=== PATIENT | male | born 1980 | race African-American/Black ===

== ENCOUNTER 2020-10-08 17:46 | Emergency (ER) | payer OTHER, SELFPAY ==
[2020-10-08 19:06] VITALS: BP 151/94; PULSE 56; RESP 16; TEMP 37.1; O2SAT 97; BMI 29.2
--- NOTE | 2020-10-08 21:07 | ED.GENADULT ---
HPI - General Adult General Chief complaint: General Medical Stated complaint: vomiting blood Time Seen by Provider: 10/08/20 21:07 Source: patient Mode of arrival: ambulatory Limitations: no limitations History of Present Illness HPI narrative: Patient history of cannabis induced vomiting/cyclic vomiting syndrome says that is not smoking marijuana for last 6 months comes here for last 3 days of vomiting multiple times now has some streaks of bright red blood when he vomits has epigastric pain no history of alcohol use no melena patient ,denies any anxiety no history of pancreatitis Related Data Allergies Allergy/AdvReac Type Severity Reaction Status Date / Time naproxen [From Aleve] Allergy Swelling Verified 10/08/20 19:06 Review of Systems Review of Systems: Yes all other systems are reviewed and are negative PMFSH Past Medical History Medical History No active medical problems Social History Social History Alcohol intake: never Patient Tobacco Use Status: Current everyday Tobacco user Use of substances other than those prescribed or required for medical reasons: No Advance Directives: No Advance Directives Information Provided: Yes Physical Exam Vital Signs: Vital Signs: Last Vital Signs Temp 98.8 F 10/08/20 19:06 Pulse 56 10/08/20 19:06 Resp 16 10/08/20 19:06 BP 151/94 H 10/08/20 19:06 Pulse Ox 97 10/08/20 19:06 Body Mass Index 29.2 Appearance: Alert. Oriented X3. In mild distress. Eyes: PERRLA, No Nystagmus ENT: Pharynx normal. Oral Mucosa moist Neck: Normal inspection. Neck supple. CVS: Normal heart rate and rhythm. Pulses normal. Respiratory: No respiratory distress. Equal air entry bilateral, Abdomen: Soft and epigastric tenderness+. Bowel sounds are present, no mass palpable, no CVA tenderness Skin: Skin warm and dry. Normal skin color. Normal skin turgor. Extremities: No lower extremity edema. Neuro: Oriented X 3. Medical Decision Making MDM Narrative Medical decision making narrative: Patient has cyclic vomiting syndrome received IV fluids feeling much better now taking p.o. fluids will discharge patient home Lab Data Lab results reviewed: Yes I reviewed the patient's lab results. Result diagrams: 10/08/20 21:11 10/08/20 21:11 Labs: Lab Results 10/08/20 10/08/20 10/08/20 Range/Units 21:11 21:11 21:11 WBC 8.6 (4.8-10.8) X10*3/uL RBC 4.76 (4.60-5.80) X10*6/uL Hgb 15.3 (14.0-18.0) g/dl Hct 44.9 (42-52) % MCV 94.3 (80-98) fL MCH 32.1 (27.0-33.0) pg MCHC 34.1 (31.0-36.0) g/dl RDW 11.5 (11.0-16.0) % Plt Count 308 (160-400) X10*3/uL MPV 10.4 (9.4-12.4) fL Immature Gran % (Auto) Cancelled Neut % (Auto) Cancelled Lymph % (Auto) Cancelled [place] % (Auto) Cancelled Eos % (Auto) Cancelled Baso % (Auto) Cancelled Lymph # (Auto) Cancelled [place] # (Auto) Cancelled Eos # (Auto) Cancelled Baso # (Auto) Cancelled Abs Immat Gran (auto) Cancelled Absolute Neuts (auto) Cancelled Absolute Nucleated RBC 0.000 (0.0-0.012) X10*3/uL Nucleated RBC % (auto) 0.0 (0.0-0.2) /100WBC Neutrophils % (Manual) 69 (45-73) % Lymphocytes % (Manual) 23 (20-40) % Monocytes % (Manual) 8 (2-11) % Abs Neuts (Manual) 5.9 (2.2-7.9) X10*3/uL Lymphocytes # (Manual) 2.0 (0.6-4.8) X10*3/uL Monocytes # (Manual) 0.7 (0.0-1.2) X10*3/uL Platelet Estimate NORMAL (NORMAL) Plt Morphology Comment NORMAL RBC Morphology NORMAL Sodium 138 (135-145) mmol/L Potassium 3.9 (3.3-5.1) mmol/L Chloride 97 (96-108) mmol/L Carbon Dioxide 28 (22-29) mmol/L Anion Gap 17 (12-20) BUN 13 (9-16) mg/dL Creatinine 0.94 (0.5-1.4) mg/dL Estim Creat Clear Calc 149.7 Estimated GFR > 60 Random Glucose 104 (60-115) mg/dL Calcium 10.0 (8.4-10.2) mg/dL Total Bilirubin 1.2 H (0.0-1.0) mg/dL Direct Bilirubin 0.4 (0.0-0.5) mg/dL AST 20 (5-37) U/L ALT 25 (0-40) U/L Alkaline Phosphatase 93 (39-117) U/L Total Protein 8.2 H (6.5-8.0) g/dL Albumin 4.6 (3.5-5.0) g/dL Lipase 9 (8-78) U/L Urine Color DARK YELLOW Urine Appearance CLEAR Urine pH 6.0 (5.0-8.0) Ur Specific [place] >= 1.030 H (1.005-1.025) Urine Protein TRACE (NEG-TRACE) MG/DL Urine Glucose (UA) NEG (NEG) MG/DL Urine Ketones 5 (NEG) MG/DL Urine Blood TRACE (NEG) Urine Nitrite NEG (NEG) Ur Leukocyte Esterase NEG (NEG) Urine RBC 0-2 (0) /HPF Urine WBC 0 (0-4) /HPF Ur Squamous Epith Cells NONE /LPF Urine Bacteria TRACE /LPF Hyaline Casts 0-2 /LPF Urine Mucus 4+ /LPF
[2020-10-08 21:20] LABS: Hematocrit 44.9 % (42-52); Hemoglobin 15.3 g/dl (14.0-18.0); Mean Corpuscular HGB Conc 34.1 g/dl (31.0-36.0); Mean Corpuscular Hemoglobin 32.1 pg (27.0-33.0); Mean Corpuscular Volume 94.3 fL (80-98); Mean Platelet Volume 10.4 fL (9.4-12.4); Platelet Count 308 X10*3/uL (160-400); Red Blood Count 4.76 X10*6/uL (4.60-5.80); Red Cell Distribution Width 11.5 % (11.0-16.0)
[2020-10-08] MEDS: LORazepam 2 MG/ML VIAL IVPUSH (21:21)
[2020-10-08] MEDS: Famotidine/PF 20 MG/2 ML VIAL IVPUSH (21:21)
[2020-10-08] MEDS: ondansetron HCL 4 MG/2 ML VIAL IVPUSH (21:21)
[2020-10-08] MEDS: 0.9 % Sodium Chloride 1,000 ML 999 ML IVCONT ×2 (21:21→23:56)
[2020-10-08 21:22] LABS: WBC ABN SCTR FOR CBC 1
[2020-10-08 21:24] LABS: Glucose Urine UA NEG (NEG); Leukocyte Esterase Urine NEG (NEG); Nitrite Urine NEG (NEG); Specific Gravity - Urine >= 1.030 (1.005-1.025); Urine Blood TRACE (NEG); Urine Ketones 5 MG/DL (NEG); Urine Protein TRACE MG/DL (NEG-TRACE)
[2020-10-08 21:25] LABS: Appearance Urine CLEAR; Color Urine DARK YELLOW
[2020-10-08 21:31] LABS: Bacteria Urine TRACE /LPF; Hyaline Casts Urine 0-2 /LPF; Mucus Urine 4+ /LPF; RBC Urine 0-2 /HPF (0); WBC Urine 0 /HPF (0-4)
[2020-10-08 21:43] LABS: Alanine Aminotransferase 25 U/L (0-40); Albumin Level 4.6 g/dL (3.5-5.0); Alkaline Phosphatase 93 U/L (39-117); Anion Gap 17 (12-20); Aspartate Amino Transferase 20 U/L (5-37); Bilirubin Direct 0.4 mg/dL (0.0-0.5); Bilirubin Total 1.2 mg/dL (0.0-1.0); Blood Urea Nitrogen 13 mg/dL (9-16); Carbon Dioxide 28 mmol/L (22-29); Chloride 97 mmol/L (96-108); Creatinine Clr Calc Pharmacy 149.7; Estimated Glomerular Filt Rate > 60; Glucose Random 104 mg/dL (60-115); Lipase 9 U/L (8-78); Potassium 3.9 mmol/L (3.3-5.1); Sodium 138 mmol/L (135-145); Total Protein 8.2 g/dL (6.5-8.0)
[2020-10-08 21:44] LABS: Lymphocytes Percent Manual 23 % (20-40); Monocytes Absolute Manual 0.7 X10*3/uL (0.0-1.2); Monocytes Percent Manual 8 % (2-11); Neutrophils Percent Manual 69 % (45-73); RBC Morphology NORMAL; White Blood Count 8.6 X10*3/uL (4.8-10.8)
[2020-10-08 21:45] LABS: Neutrophils Absolute Manual 5.9 X10*3/uL (2.2-7.9); Platelet Estimate NORMAL (NORMAL); Platelet Morphology Comment NORMAL
[2020-10-08] MEDS: Prochlorperazine Edisylate 10 MG/2 ML VIAL IVPUSH (23:57)
[2020-10-09 01:31] VITALS: BP 147/83; PULSE 62; RESP 16; TEMP 36.9; O2SAT 98
== END 2020-10-09 01:32 | disposition home or self-care (01) ==
PROVIDERS: Emergency Provider Internal Medicine; PCP Internal Medicine
DX: R11.15 Cyclical vomiting syndrome unrelated to migraine (principal); F12.988 Cannabis use, unspecified with other cannabis-induced disorder; F17.200 Nicotine dependence, unspecified, uncomplicated; Z71.6 Tobacco abuse counseling; Z79.899 Other long term (current) drug therapy
CPT/HCPCS: 36415; 80048; 80076; 81001; 83690; 85007; 85027; 96365; 96375; 99284; J2060; J2405

== ENCOUNTER 2022-07-04 20:06 | Emergency (ER) | payer BC, OTHER, SELFPAY ==
[2022-07-04 20:20] VITALS: BP 161/84; PULSE 57; RESP 20; TEMP 36.6; O2SAT 100; BMI 25.9
[2022-07-04 20:40] LABS: MANUAL DIFF FLAG NO
[2022-07-04 20:42] LABS: Mean Corpuscular Volume 96.2 fL (80.0-98.0); WBC ABN SCTR 1
[2022-07-04 20:49] LABS: Basophils Percent Auto 0.1 % (0-2); Hematocrit 42.9 % (42.0-52.0); Hemoglobin 14.5 g/dl (14.0-18.0); Imm Gran Abs Auto 0.02 X10*3/uL (0.00-0.03); Imm Gran Pct Auto 0.2 % (0.0-0.4); Lymphocytes Absolute Auto 0.7 X10*3/uL (1.2-4.9); Lymphocytes Percent Auto 8.2 % (20-40); Mean Corpuscular HGB Conc 33.8 g/dl (31.0-36.0); Mean Corpuscular Hemoglobin 32.5 pg (27.0-33.0); Mean Platelet Volume 9.8 fL (9.4-12.4); Monocytes Absolute Auto 0.3 X10*3/uL (0.1-1.2); Monocytes Percent Auto 3.5 % (2-11); Neutrophils Absolute Auto 7.3 x10*3/uL (2.0-8.3); Platelet Count 270 X10*3/uL (160-400); Red Blood Count 4.46 X10*6/uL (4.60-5.80); Red Cell Distribution Width 11.3 % (11.0-16.0)
[2022-07-04 20:51] LABS: WBC ABN SCTR FOR CBC 1
[2022-07-04 20:52] LABS: White Blood Count 8.3 X10*3/uL (4.8-10.8)
[2022-07-04 21:00] LABS: Alanine Aminotransferase 23 U/L (0-40); Albumin Level 4.7 g/dL (3.5-5.0); Alkaline Phosphatase 69 U/L (39-117); Anion Gap 16 (12-20); Aspartate Amino Transferase 20 U/L (5-37); Bilirubin Direct 0.2 mg/dL (0.0-0.5); Bilirubin Total 0.8 mg/dL (0.0-1.0); Blood Urea Nitrogen 13 mg/dL (9-16); Calcium 9.7 mg/dL (8.4-10.2); Carbon Dioxide 24 mmol/L (22-29); Chloride 110 mmol/L (96-108); Creatinine Clr Calc Pharmacy 157.7; Estimated Glomerular Filt Rate > 60; Glucose Random 142 mg/dL (60-115); Lipase 13 U/L (8-78); Potassium 4.2 mmol/L (3.3-5.1); Sodium 146 mmol/L (135-145); Total Protein 7.6 g/dL (6.5-8.0)
--- NOTE | 2022-07-04 21:41 | ED_ITS ---
HPI - Nausea/Vomiting/Diarrhea General Chief complaint: Nausea/Vomiting/Diarrhea Stated complaint: vomiting, cant keep anything down Time Seen by Provider: 07/04/22 21:00 Source: patient and family Mode of arrival: ambulatory History of Present Illness HPI Narrative: 41-year-old male who presents with recurrent episodes of nausea and vomiting, has been seen previously by Gastroenterology but blown off and does have a history of using marijuana but states that he has previously stopped using but still continued to have the problem with nausea and vomiting. He otherwise denies any fever, chills, abdominal pain, dysuria. He denies any contaminated food intake. Related Data Previous Rx's Medication Instructions Recorded lorazepam 1 mg tablet (Ativan) 1 mg PO BID PRN anxiety #20 tabs 10/09/20 ondansetron 4 mg disintegrating 4 mg PO Q6-8H PRN nausea and 10/09/20 tablet vomiting #10 tabs ondansetron HCl 4 mg tablet 4 mg PO Q8H PRN nausea and 07/05/22 vomiting 4 days #14 tabs Allergies Allergy/AdvReac Type Severity Reaction Status Date / Time naproxen [From Aleve] Allergy Swelling Verified 07/04/22 20:24 Review of Systems Review of Systems: Pertinent positives and negatives as stated in HPI PMFSH Past Medical History Source: nursing notes reviewed Medical History No active medical problems Social History Social History Alcohol intake: never Patient Tobacco Use Status: Current everyday Tobacco user Smoked in Last 30 Days: No Use of substances other than those prescribed or required for medical reasons: No Advance Directives: No Advance Directives Information Provided: No Physical Exam Vital Signs: Vital Signs: Last Vital Signs Temp 98 F 07/04/22 20:20 Pulse 57 07/04/22 20:20 Resp 20 07/04/22 20:20 BP 161/84 H 07/04/22 20:20 Pulse Ox 100 07/04/22 20:20 O2 Del Method Room Air 07/04/22 20:20 BMI result Body Mass Index 25.9 VITAL SIGNS: Reviewed. GENERAL: Well developed, well nourished, in no acute distress. HEAD: Normocephalic/atraumatic EYES: PERRLA, EOMI EARS: Ext canals without abnormality, TMs non-bulging and non-erythematous NOSE: Nares patent bilateral OROPHARYNX: no oral lesions noted, posterior pharynx clear NECK: Supple, no adenopathy LUNGS: Normal breath sounds. No adventitious sounds or accessory muscle use. SpO2<100> CARDIOVASCULAR: Regular rate and rhythm without noted murmurs ABDOMEN: Soft, non-tender, non-distended with bowel sounds. MUSCULOSKELETAL: No tenderness, deformities, or effusions noted on gross inspection. EXTREMITIES: No cyanosis, clubbing or edema. SKIN: Inspection of the skin reveals no rashes NEUROLOGIC: Alert and oriented x 4. Strength and sensation to light touch were grossly intact x 4. Medications Administered Discontinued Medications Generic Name Dose Route Start Last Admin Trade Name Freq PRN Reason Stop Dose Admin Diphenhydramine HCl 25 mg 07/04/22 21:41 07/04/22 21:49 Diphenhydramine Hcl 50 Mg/Ml Vial IVPUSH 07/04/22 21:42 25 mg ONCE ONE Administration Sodium Chloride 1,000 mls @ 999 mls/hr 07/04/22 21:45 07/04/22 23:47 Ns IV 07/04/22 22:45 Infused .Q1H1M SUNG Infusion Metoclopramide HCl 10 mg 07/04/22 21:41 07/04/22 21:48 Metoclopramide Hcl 10 Mg/2 Ml Vial IVPUSH 07/04/22 21:42 10 mg ONCE ONE Administration Ondansetron HCl 4 mg 07/04/22 21:41 07/04/22 21:48 Ondansetron Hcl 4 Mg/2 Ml Vial IVPUSH 07/04/22 21:42 4 mg ONCE ONE Administration Medical Decision Making Medical Decision Making MDM Narrative: 41-year-old male with history and clinical presentation consistent with sickle vomiting but unclear whether not this is stress, cannabis use, or a viral gastroenteritis. Will provide antiemetics, rehydration and re-evaluate. Patient was rehydrated, he is now tolerating oral intake, he is otherwise discharged home in stable condition with a prescription for anti emetics as well as a referral for GI and instructions to begin keeping track of any stressors and or food consumption that may be contributing to his cyclical vomiting. Differential Diagnosis Please see the discussion above Lab Data Please see the discussion above 07/04/22 20:36 07/04/22 20:36 Labs: Lab Results 07/04/22 07/04/22 07/04/22 Range/Units 20:36 20:36 23:24 WBC 8.3 (4.8-10.8) X10*3/uL RBC 4.46 L (4.60-5.80) X10*6/uL Hgb 14.5 (14.0-18.0) g/dl Hct 42.9 (42.0-52.0) % MCV 96.2 (80.0-98.0) fL MCH 32.5 (27.0-33.0) pg MCHC 33.8 (31.0-36.0) g/dl RDW 11.3 (11.0-16.0) % Plt Count 270 (160-400) X10*3/uL MPV 9.8 (9.4-12.4) fL Immature Gran % (Auto) 0.2 (0.0-0.4) % Neut % (Auto) 88.0 H (45-73) % Lymph % (Auto) 8.2 L (20-40) % [place] % (Auto) 3.5 (2-11) % Eos % (Auto) 0.0 (0-4) % Baso % (Auto) 0.1 (0-2) % Lymph # (Auto) 0.7 L (1.2-4.9) X10*3/uL [place] # (Auto) 0.3 (0.1-1.2) X10*3/uL Eos # (Auto) 0.0 (0.0-0.4) X10*3/uL Baso # (Auto) 0.0 (0.0-0.2) X10*3/uL Abs Immat Gran (auto) 0.02 (0.00-0.03) X10*3/uL Absolute Neuts (auto) 7.3 (2.0-8.3) x10*3/uL Absolute Nucleated RBC 0.000 (0.0-0.012) X10*3/uL Nucleated RBC % (auto) 0.0 (0.0-0.2) /100WBC Sodium 146 H (135-145) mmol/L Potassium 4.2 (3.3-5.1) mmol/L Chloride 110 H (96-108) mmol/L Carbon Dioxide 24 (22-29) mmol/L Anion Gap 16 (12-20) BUN 13 (9-16) mg/dL Creatinine 0.80 (0.5-1.4) mg/dL Estim Creat Clear Calc 157.7 Estimated GFR > 60 Random Glucose 142 H (60-115) mg/dL Calcium 9.7 (8.4-10.2) mg/dL Total Bilirubin 0.8 (0.0-1.0) mg/dL Direct Bilirubin 0.2 (0.0-0.5) mg/dL AST 20 (5-37) U/L ALT 23 (0-40) U/L Alkaline Phosphatase 69 (39-117) U/L Total Protein 7.6 (6.5-8.0) g/dL Albumin 4.7 (3.5-5.0) g/dL Lipase 13 (8-78) U/L Urine Opiates Screen Not Detected (Not Detect) Urine Fentanyl Screen Not Detected (Not Detect) Ur Barbiturates Screen Not Detected (Not Detect) Ur Phencyclidine Scrn Not Detected (Not Detect) Ur Amphetamines Screen Not Detected (Not Detect) U Benzodiazepines Scrn Not Detected (Not Detect) Urine Cocaine Screen Not Detected (Not Detect) U Marijuana (THC) Screen POSITIVE H (Not Detect) Independent Interpretation I performed an independent interpretation of an: EKG Interpretation: Sinus rhythm with PACs, HR-60, no STEMI, GA/QRS/QTC is within normal limits. External Record Review External record reviewed: Outpatient record and Prior outpatient labs Discharge Plan Discharge Clinical Impression: Cyclical vomiting, Dehydration Patient Disposition: Home, Self-Care Instructions: Dehydration (ED), Cyclic Vomiting Syndrome (ED) Additional Instructions: 1. You have been provided with a prescription for antinausea medication 2. I have provided you with a referral for Gastroenterology, I highly recommend that you keep track any food items or stressors and may be affecting these recurred events. 3. Follow-up with your primary care provider by calling the office on Thursday morning. Return to the ER for any worsening symptoms. Prescriptions: New ondansetron HCl 4 mg tablet 4 mg PO Q8H PRN (Reason: nausea and vomiting) 4 Days Qty: 14 0RF No Action lorazepam [Ativan] 1 mg tablet 1 mg PO BID PRN (Reason: anxiety) Qty: 20 0RF ondansetron 4 mg tablet,disintegrating 4 mg PO Q6-8H PRN (Reason: nausea and vomiting) Qty: 10 0RF Referrals: Tere Phelan MD [Physician] - (Cyclical Vomiting, maybe food related)
--- NOTE | 2022-07-04 21:42 | ECG_ITS ---
Test Reason : ABDOMINAL PAIN Blood Pressure : / mmHG Vent. Rate : 060 BPM Atrial Rate : 060 BPM P-R Int : 146 ms QRS Dur : 086 ms QT Int : 424 ms P-R-T Axes : 000 050 038 degrees QTc Int : 424 ms Ectopic atrial rhythm with Premature atrial complexes Nonspecific T wave abnormality Abnormal ECG When compared with ECG of 14-SEP-2018 08:42, Ectopic atrial rhythm present Referred By: Karuna Romero Electronically Signed By:Raffy Miller
[2022-07-04] MEDS: ondansetron HCL 4 MG/2 ML VIAL IVPUSH (21:48)
[2022-07-04] MEDS: Metoclopramide HCl 10 MG/2 ML VIAL IVPUSH (21:48)
[2022-07-04] MEDS: 0.9 % Sodium Chloride 1,000 ML 999 ML IV (21:48)
[2022-07-04] MEDS: diphenhydrAMINE HCL 50 MG/ML VIAL 25 MG IVPUSH (21:49)
[2022-07-04 23:42] LABS: Amphetamine Screen Urine Not Detected (Not Detect); Barbiturates, Urine Not Detected (Not Detect); Benzodiazepines Screen Urine Not Detected (Not Detect); Cannabinoid Screen Urine POSITIVE (Not Detect); Cocaine Screen Urine Not Detected (Not Detect); Fentanyl, urine Not Detected (Not Detect); Opiate Screen Urine Not Detected (Not Detect); Phencyclidine Screen Urine Not Detected (Not Detect)
--- NOTE | 2022-07-04 23:47 | PC.NURSE ---
Pt tolerating PO trial at this time, MD Parks aware.
== END 2022-07-05 00:11 | disposition home or self-care (01) ==
PROVIDERS: Emergency Provider Student in an Organized Health Care Education/Training Program
DX: R11.15 Cyclical vomiting syndrome unrelated to migraine (principal); E86.0 Dehydration; F17.200 Nicotine dependence, unspecified, uncomplicated; Z71.6 Tobacco abuse counseling; Z79.899 Other long term (current) drug therapy
CPT/HCPCS: 36415; 80048; 80076; 80307; 83690; 85025; 93005; 96361; 96374; 96375; 99283; 99285; J1200; J2405; J2765

== ENCOUNTER 2022-10-31 17:41 | Emergency (ER) | payer BC, OTHER, SELFPAY ==
[2022-10-31 17:56] VITALS: BP 133/74; PULSE 50; RESP 14; TEMP 36.8; O2SAT 98; BMI 27.0
--- NOTE | 2022-10-31 17:57 | ED.GENADULT ---
HPI - General Adult General Chief complaint: Nausea/Vomiting/Diarrhea Stated complaint: vomiting, cant hold anything down Time Seen by Provider: 10/31/22 22:39 Source: patient and family Mode of arrival: ambulatory Limitations: no limitations History of Present Illness HPI narrative: 42 yo male hx of vomiting episodes with upper abdominal pain and fevers states he hasn't smoked in 2 weeks and when it was approached whether or not he smoked he became very agitated and states he is always blown off and it's not the marijuana and that we can just give him the IV and stop criticizing him for his choices. He states he uses hot showers to help his pain. He has had this multiple times and they cannot figure it out but always blame his marijuana use. MD complaint: nausea vomiting upper abdominal pain Onset (ago): day(s) (1) Location: abdomen Radiation: non-radiation Severity: moderate Quality: aching and constant Pain Consistency: constant Relieving factors: none Exacerbating factors: eating Associated symptoms: fever/chills, loss of appetite, malaise and nausea/vomiting Treatments prior to arrival: none Related Data Previous Rx's Medication Instructions Recorded lorazepam 1 mg tablet (Ativan) 1 mg PO BID PRN anxiety #20 tabs 10/09/20 ondansetron 4 mg disintegrating 4 mg PO Q6-8H PRN nausea and 10/09/20 tablet vomiting #10 tabs ondansetron HCl 4 mg tablet 4 mg PO Q8H PRN nausea and 07/05/22 vomiting 4 days #14 tabs ondansetron 4 mg disintegrating 4 mg PO Q8H PRN nausea and 10/31/22 tablet vomiting #20 tabs Allergies Allergy/AdvReac Type Severity Reaction Status Date / Time naproxen [From Aleve] Allergy Swelling Verified 07/04/22 20:24 Review of Systems Review of Systems: Constitutional : No Weight loss, pos Chills ENT/Mouth : No sore throat, No Rhinorrhea Eyes: No Swelling, No Redness Cardiovascular : No Chest Pain, No SOB, NoEdema Respiratory : No Cough, No Sputum, No Wheezing Gastrointestinal : Positive Nausea, Positive Vomiting, no Diarrhea, positive abdominal Pain, No Hematochezia, No Melena Genitourinary : No Dysuria, No Urinary Frequency, No Hematuria, No Urgency Musculoskeletal : No joint pain, No Myalgias, No Joint Swelling Skin : No Skin Lesions, No rash Neuro : No Weakness, No Numbness, No Dizziness, No Headache Psych : No Anxiety/Panic, No Depression All other systems reviewed and are negative. [facility] Past Medical History Attestation statement: The following information was validated with the patient. Social History Social History (Updated 10/31/22 @ 23:15 by Destiney Blank DO) Alcohol intake: never Patient Tobacco Use Status: Current everyday Tobacco user Smoked in Last 30 Days: No Use of substances other than those prescribed or required for medical reasons: No Substance Use Type: Marijuana Advance Directives: No Advance Directives Information Provided: No Physical Exam ED Vital Signs: Vital Signs - 24 hr 10/31/22 17:56 Temperature 98.3 F Pulse Rate 50 Respiratory Rate 14 Blood Pressure 133/74 Pulse Oximetry 98 Oxygen Delivery Method Room Air BMI result Body Mass Index 27.0 Appearance: Alert. Oriented X3. No acute distress. Eyes: Pupils equal, round and reactive to light. ENT: Pharynx mildly dry MM Neck: Normal inspection. Neck supple. CVS: Normal heart rate and rhythm. Pulses normal. Respiratory: No respiratory distress. Breath sounds normal. Abdomen: Soft and nontender. Skin: Skin warm and dry. Normal skin color. Normal skin turgor. Extremities: No lower extremity edema. No calf ttp Neuro: Oriented X 3. No motor deficit. No sensory deficit. Course Course Course Narrative: This is a rapid medical exam: Additional HPI, ROS, PE not included below will be deferred to primary provider. Patient is a 42-year-old male presenting to the emergency department with complaint of nausea, vomiting, and diarrhea since late last night. Unable to tolerate any PO today. Generalized abdominal pain. Subjective fevers. No other sick family members at home. Plan: labs, UA Reevaluation(s) Reevaluation #1: feels better and wants to go home, will DC home with zofran and work note Medications Administered Discontinued Medications Generic Name Dose Route Start Last Admin Trade Name Freq PRN Reason Stop Dose Admin Diphenhydramine HCl 25 mg 10/31/22 22:51 10/31/22 23:35 Diphenhydramine Hcl 50 Mg/Ml Vial IVPUSH 10/31/22 22:52 25 mg ONCE ONE Administration Famotidine 20 mg 10/31/22 22:51 10/31/22 23:34 Famotidine/Pf 20 Mg/2 Ml Vial IVPUSH 10/31/22 22:52 20 mg ONCE ONE Administration Sodium Chloride 1,000 mls @ 999 mls/hr 10/31/22 23:00 11/01/22 00:35 Ns IV 11/01/22 00:00 Infused .Q1H1M SUNG Infusion Metoclopramide HCl 10 mg 10/31/22 22:51 10/31/22 23:35 Metoclopramide Hcl 10 Mg/2 Ml Vial IVPUSH 10/31/22 22:52 10 mg ONCE ONE Administration Medical Decision Making Medical Decision Making [facility] Narrative: 42 yo male with hx of vomiting in the past comes in with typical bout of his vomiting at this time he has benign exam he is agitated with any questioning his visitor if very polite and helpful - he will get labs, IVF and IV anti-emeticis with pepcid. suspect repeat bouts of his vomiting episodes that he has had in the past he reports no concerning symptoms. Differential Diagnosis Differential Diagnoses: The differential diagnosis associated with the presentation includes cyclical vomiting syndrome, THC induced emesis, gastritis, viral syndrome, stress, anxiety Admission/Observation Consideration of admission/observation: Escalation of care including admission/observation considered able to tolerate PO can be sent home with [facility] Lab Data [facility] Lab Attestation statement: I reviewed the patient's lab results. 10/31/22 19:01 10/31/22 19:01 Labs: Lab Results 10/31/22 10/31/22 Range/Units 19:01 19:01 WBC 8.0 (4.8-10.8) X10*3/uL RBC 4.24 L (4.60-5.80) X10*6/uL Hgb 13.9 L (14.0-18.0) g/dl Hct 41.2 L (42.0-52.0) % MCV 97.2 (80.0-98.0) fL MCH 32.8 (27.0-33.0) pg MCHC 33.7 (31.0-36.0) g/dl RDW 11.3 (11.0-16.0) % Plt Count 258 (160-400) X10*3/uL MPV 10.3 (9.4-12.4) fL Immature Gran % (Auto) Cancelled Neut % (Auto) Cancelled Lymph % (Auto) Cancelled [place] % (Auto) Cancelled Eos % (Auto) Cancelled Baso % (Auto) Cancelled Lymph # (Auto) Cancelled [place] # (Auto) Cancelled Eos # (Auto) Cancelled Baso # (Auto) Cancelled Abs Immat Gran (auto) Cancelled Absolute Neuts (auto) Cancelled Absolute Nucleated RBC 0.000 (0.0-0.012) X10*3/uL Nucleated RBC % (auto) 0.0 (0.0-0.2) /100WBC Neutrophils % (Manual) 85 H (45-73) % Lymphocytes % (Manual) 11 L (20-40) % Monocytes % (Manual) 4 (2-11) % Abs Neuts (Manual) Not Reportable Lymphocytes # (Manual) 0.9 L (1.2-4.9) X10*3/uL Monocytes # (Manual) 0.3 (0.1-1.2) X10*3/uL Platelet Estimate NORMAL (NORMAL) Plt Morphology Comment NORMAL RBC Morphology NORMAL Sodium 144 (135-145) mmol/L Potassium 4.2 (3.3-5.1) mmol/L Chloride 110 H (96-108) mmol/L Carbon Dioxide 21 L (22-29) mmol/L Anion Gap 17 (12-20) BUN 10 (9-16) mg/dL Creatinine 0.77 (0.5-1.4) mg/dL Estim Creat Clear Calc 162.2 Estimated GFR > 60 Random Glucose 137 H (60-115) mg/dL Calcium 9.4 (8.4-10.2) mg/dL Magnesium 2.0 (1.6-2.6) mg/dL Total Bilirubin 0.5 (0.0-1.0) mg/dL AST 22 (5-37) U/L ALT 24 (0-40) U/L Alkaline Phosphatase 71 (39-117) U/L Total Protein 7.6 (6.5-8.0) g/dL Albumin 4.3 (3.5-5.0) g/dL Lipase 8 (8-78) U/L Independent Historian Clinical information obtained from an independent historian. History obtained from or confirmed by: Spouse External Record Review External record reviewed: Inpatient record Tests considered The following testing was considered but not selected: CT scan labs reassuring hx of same in past no localizing signs doubt infection Prescription Management I considered prescription management with: Other (zofran) Discharge Plan Discharge Clinical Impression: Cyclical vomiting Patient Disposition: Home, Self-Care Instructions: Acute Nausea and Vomiting (ED) Additional Instructions: return for worsening symptoms, pain, inability to eat or drink, black or blood stools or any other concerns. advance diet slowly over the next 48 hours Prescriptions: New ondansetron 4 mg tablet,disintegrating 4 mg PO Q8H PRN (Reason: nausea and vomiting) Qty: 20 0RF No Action lorazepam [Ativan] 1 mg tablet 1 mg PO BID PRN (Reason: anxiety) Qty: 20 0RF ondansetron 4 mg tablet,disintegrating 4 mg PO Q6-8H PRN (Reason: nausea and vomiting) Qty: 10 0RF ondansetron HCl 4 mg tablet 4 mg PO Q8H PRN (Reason: nausea and vomiting) 4 Days Qty: 14 0RF Interventions: ED Discharge Assessment Last Done: 11/01/22 02:33 Discharge Date/Time: 11/01/22 02:52
[2022-10-31 19:09] LABS: Hematocrit 41.2 % (42.0-52.0); Hemoglobin 13.9 g/dl (14.0-18.0); Mean Corpuscular HGB Conc 33.7 g/dl (31.0-36.0); Mean Corpuscular Hemoglobin 32.8 pg (27.0-33.0); Mean Corpuscular Volume 97.2 fL (80.0-98.0); Mean Platelet Volume 10.3 fL (9.4-12.4); Platelet Count 258 X10*3/uL (160-400); Red Blood Count 4.24 X10*6/uL (4.60-5.80); Red Cell Distribution Width 11.3 % (11.0-16.0)
[2022-10-31 19:47] LABS: Alanine Aminotransferase 24 U/L (0-40); Albumin Level 4.3 g/dL (3.5-5.0); Alkaline Phosphatase 71 U/L (39-117); Anion Gap 17 (12-20); Aspartate Amino Transferase 22 U/L (5-37); Bilirubin Total 0.5 mg/dL (0.0-1.0); Blood Urea Nitrogen 10 mg/dL (9-16); Calcium 9.4 mg/dL (8.4-10.2); Carbon Dioxide 21 mmol/L (22-29); Chloride 110 mmol/L (96-108); Creatinine Clr Calc Pharmacy 162.2; Estimated Glomerular Filt Rate > 60; Glucose Random 137 mg/dL (60-115); Lipase 8 U/L (8-78); Potassium 4.2 mmol/L (3.3-5.1); Sodium 144 mmol/L (135-145); Total Protein 7.6 g/dL (6.5-8.0)
[2022-10-31 20:02] LABS: WBC ABN SCTR FOR CBC 1
[2022-10-31 20:07] LABS: Lymphocytes Percent Manual 11 % (20-40); Monocytes Percent Manual 4 % (2-11); Neutrophils Percent Manual 85 % (45-73); Platelet Estimate NORMAL (NORMAL); Platelet Morphology Comment NORMAL; RBC Morphology NORMAL
[2022-10-31 21:50] LABS: Lymphocytes Absolute Manual 0.9 X10*3/uL (1.2-4.9); Monocytes Absolute Manual 0.3 X10*3/uL (0.1-1.2)
[2022-10-31] MEDS: Famotidine/PF 20 MG/2 ML VIAL IVPUSH (23:34)
[2022-10-31] MEDS: 0.9 % Sodium Chloride 1,000 ML 999 ML IV (23:34)
[2022-10-31] MEDS: Metoclopramide HCl 10 MG/2 ML VIAL IVPUSH (23:35)
[2022-10-31] MEDS: diphenhydrAMINE HCL 50 MG/ML VIAL 25 MG IVPUSH (23:35)
[2022-11-01 02:00] VITALS: BP 152/81; PULSE 57; RESP 18; TEMP 37.7; O2SAT 98
--- NOTE | 2022-11-01 02:24 | PC.NURSE ---
Reviewed discharge instructions wtih pt, pt verbalized understanding. no sign of distress. Notified Rn Tita.
== END 2022-11-01 02:52 | disposition home or self-care (01) ==
PROVIDERS: Registered Nurse Emergency; Emergency Provider Emergency Medicine
DX: R11.15 Cyclical vomiting syndrome unrelated to migraine (principal); F12.90 Cannabis use, unspecified, uncomplicated; F17.200 Nicotine dependence, unspecified, uncomplicated; Z79.899 Other long term (current) drug therapy
CPT/HCPCS: 36415; 80053; 83690; 83735; 85007; 85025; 85027; 96361; 96374; 96375; 99284; J1200; J2765

== ENCOUNTER 2023-09-30 10:21 | Emergency (ER) | payer OTHER, SELFPAY ==
--- NOTE | ~2023-09-30 | CT_ITS ---
EXAMINATION: CT ABDOMEN AND PELVIS WITH CONTRAST CLINICAL INFORMATION: Diffuse abdominal pain. COMPARISON: 09/14/2018 TECHNIQUE: Multidetector volumetric images were obtained from the superior aspect of the liver through the pubic symphysis following administration 85 mL of Omnipaque 350 intravenous contrast. Sagittal and coronal reformatted images were obtained on the technologist's workstation. Oral contrast: No This CT examination was performed using dose optimization techniques as appropriate, variously including the following: *Automated exposure control *Adjustment of mA and/or kV according to patient size (this includes techniques or standardized protocols for targeted exams where dose is matched to indication/reason for exam; i.e. extremities or head) *Use of iterative reconstruction technique DLP: 713 mGy-cm FINDINGS: LUNG BASES: Small hiatal hernia. LIVER, GALLBLADDER, AND BILIARY TREE: The liver is decreased in attenuation. No focal hepatic lesion or biliary ductal dilatation is present. The gallbladder is unremarkable with no evidence of radiopaque gallstones, gallbladder wall thickening, or obvious pericholecystic inflammatory changes. PANCREAS: Unremarkable. SPLEEN: Unremarkable. ADRENAL GLANDS: Right adrenal nodules measure 3.4 x 3.1 cm and 1.6 x 1.2 cm. KIDNEYS AND URETERS: The kidneys are symmetric in size and enhancement. Punctate nonobstructing calculus lower pole left kidney. No hydronephrosis or perinephric stranding. BLADDER: Unremarkable. GASTROINTESTINAL TRACT: Small and large bowel loops are of normal caliber. No small bowel obstruction. Appendix is within normal limits. ABDOMINAL WALL: No significant hernia is appreciated. LYMPH NODES: No bulky lymphadenopathy. VASCULAR: Normal caliber abdominal aorta. PELVIC VISCERA: Unremarkable. OSSEOUS STRUCTURES: No destructive bone lesion. CT/CT abdomen pelvis w IV con IMPRESSION: No acute abnormality in the abdomen or pelvis. Right adrenal nodules measure 3.4 x 3.1 cm and 1.6 x 1.2 cm. Recommend consideration of laboratory evaluation for possible pheochromocytoma and then subsequent evaluation with Adrenal Protocol CT. Punctate nonobstructing left renal calculus. No hydronephrosis.
[2023-09-30 10:26] VITALS: BP 149/74; PULSE 58; RESP 16; TEMP 36.7; O2SAT 99; BMI 31.5
[2023-09-30 10:59] LABS: Hematocrit 41.1 % (42.0-52.0); Hemoglobin 14.2 g/dl (14.0-18.0); Mean Corpuscular HGB Conc 34.5 g/dl (31.0-36.0); Mean Corpuscular Hemoglobin 32.7 pg (27.0-33.0); Mean Corpuscular Volume 94.7 fL (80.0-98.0); Mean Platelet Volume 10.3 fL (9.4-12.4); Platelet Count 279 X10*3/uL (160-400); Red Blood Count 4.34 X10*6/uL (4.60-5.80); Red Cell Distribution Width 11.9 % (11.0-16.0)
[2023-09-30 11:00] LABS: WBC ABN SCTR FOR CBC 1
[2023-09-30 11:14] LABS: Alanine Aminotransferase 17 U/L (0-40); Albumin Level 4.5 g/dL (3.5-5.0); Alkaline Phosphatase 83 U/L (39-117); Anion Gap 13 (12-20); Aspartate Amino Transferase 17 U/L (5-37); Bilirubin Direct 0.3 mg/dL (0.0-0.5); Bilirubin Total 0.8 mg/dL (0.0-1.0); Blood Urea Nitrogen 12 mg/dL (9-16); Carbon Dioxide 24 mmol/L (22-29); Chloride 105 mmol/L (96-108); Creatinine Clr Calc Pharmacy 178.7; Estimated Glomerular Filt Rate > 60; Glucose Random 128 mg/dL (60-115); Lipase 15 U/L (8-78); Potassium 3.8 mmol/L (3.3-5.1); Sodium 138 mmol/L (135-145)
[2023-09-30 11:31] LABS: White Blood Count 10.5 X10*3/uL (4.8-10.8)
[2023-09-30 11:32] LABS: Band Neutrophils Percent 0 % (3-5); Lymphocytes Absolute Manual 1.3 X10*3/uL (1.2-4.9); Lymphocytes Percent Manual 12 % (20-40); Monocytes Absolute Manual 0.7 X10*3/uL (0.1-1.2); Monocytes Percent Manual 7 % (2-11); Neutrophils Absolute Manual 8.5 X10*3/uL (2.0-8.3); Neutrophils Percent Manual 81 % (45-73)
[2023-09-30 11:33] LABS: Platelet Estimate NORMAL (NORMAL); Platelet Morphology Comment NORMAL; RBC Morphology NORMAL
--- NOTE | 2023-09-30 13:49 | ED.GENADULT ---
HPI - General Adult General Chief complaint: Nausea/Vomiting/Diarrhea Stated complaint: unable to keep anything down Time Seen by Provider: 09/30/23 13:45 Source: patient, family, RN notes reviewed and old records reviewed Mode of arrival: ambulatory History of Present Illness ED Provider: Maria Alvarenga PA-C [facility] narrative: 43-year-old male with no significant past medical history presenting to the ED complaining of abdominal pain, nausea, vomiting and diarrhea x2 days. Reports diarrhea has subsided, however vomiting continues with about 4 episodes of nonbloody emesis today. Denies fever, chills, travel, suspicious food intake, sick contacts, dysuria/hematuria Related Data Previous Rx's ?Medication ?Instructions ?Recorded lorazepam 1 mg tablet (Ativan) 1 mg PO BID PRN anxiety #20 tabs 10/09/20 ondansetron 4 mg disintegrating 4 mg PO Q6-8H PRN nausea and 10/09/20 tablet vomiting #10 tabs ondansetron HCl 4 mg tablet 4 mg PO Q8H PRN nausea and 07/05/22 vomiting 4 days #14 tabs ondansetron 4 mg disintegrating 4 mg PO Q8H PRN nausea and 10/31/22 tablet vomiting #20 tabs Allergies Allergy/AdvReac Type Severity Reaction Status Date / Time naproxen [From Aleve] Allergy Swelling Verified 09/30/23 10:28 Review of Systems Review of Systems: Constitutional: No Fever, No Chills ENT/Mouth: No Ear Pain, No sore throat, No Rhinorrhea, No Swallowing Difficulty Cardiovascular: No Chest Pain, No SOB Respiratory: No Cough, No Sputum, No Wheezing Gastrointestinal: +Nausea, + Vomiting, + Diarrhea, No Constipation, +Abdominal pain Genitourinary: No Dysuria, No Urinary Frequency, No Hematuria, No Flank Pain Musculoskeletal: No joint pain, No Myalgias, No Joint Swelling Skin: No Skin Lesions, No rash Neuro: No Weakness Yes all other systems are reviewed and are negative Constitutional: Constitutional: Reports as per [facility] Past Medical History Attestation statement: The following information was validated with the patient. Source: old records reviewed Social History Social History Alcohol intake: never Patient Tobacco Use Status: Current everyday Tobacco user Substance Use Type: Marijuana Advance Directives: No Physical Exam ED Vital Signs: Vital Signs - 24 hr 09/30/23 10:26 09/30/23 14:00 09/30/23 17:44 Temperature 98.1 F 98.7 F Pulse Rate 58 50 86 Respiratory Rate 16 16 16 Blood Pressure 149/74 H 144/88 H 121/71 Pulse Oximetry 99 100 96 Oxygen Delivery Method Room Air Room Air Room Air BMI result Body Mass Index 31.5 Const General: cooperative, healthy appearing and no acute distress Orientation/consciousness: patient oriented x3 Limitations: no limitations HENMT Head: Yes normal to inspection and Yes atraumatic Ears: hearing grossly normal bilaterally General nose exam: Normal external nose present Face and sinus: Yes normal facial exam Eyes General: appearance normal, both eyes and all related structures EOM: EOMs intact bilaterally Neck Neck: Yes normal visual inspection and Yes no meningeal signs Resp Effort & Inspection: normal respiratory effort and no respiratory distress Auscultation: clear to auscultation bilaterally Cardio Rate: regular rate Heart sounds: S1 normal heart sound present and S2 normal heart sound present GI Inspection: Yes normal to inspection Palpation (GI): Soft to palpation, Tenderness to palpation present (GI) (diffusely) with no rebound tenderness, no guarding and not rigid Skin Rashes: no rashes Wounds: no wounds Neuro General: patient oriented x3, tone normal and no meningeal signs Cranial nerves: Yes CN's II-XII intact bilaterally Gait exam (Neuro): Normal gait present Extrem General: Yes normal to inspection Course Course Course Narrative: -1400--no leukocytosis, labs otherwise reassuring -1630--ED care transferred to [facility] Serna pending CT, UA, re-evaluation and dispo per results Reevaluation(s) Reevaluation #1: Patient feeling much better, awaiting UA. CT scan shows adrenal nodules, recommending adrenal protocol CT scan which he can do outpatient. Punctate nonobstructing left renal calculus also seen, no hydronephrosis. Discussed with patient, urine returns, no evidence of infection. Discussed with patient, also advised the importance of following up with the PCP in regards to adrenal nodules. He understands and agrees with plan. Patient stable for discharge. Time: 17:44 Medications Administered Discontinued Medications Generic Name Dose Route Start Last Admin Trade Name Freq PRN Reason Stop Dose Admin Sodium Chloride 1,000 mls @ 999 mls/hr 09/30/23 14:00 09/30/23 15:38 Ns IV 09/30/23 15:00 Infused .Q1H1M SUNG Infusion Sodium Chloride 1,000 mls @ 999 mls/hr 09/30/23 16:15 09/30/23 17:52 Ns IV 09/30/23 17:15 Infused .Q1H1M SUNG Infusion Iohexol 100 ml 09/30/23 15:31 09/30/23 15:31 Iohexol 350 Mg/Ml 100 Ml Infus..Btl IV 09/30/23 15:32 85 ml ONCE ONE Administration Morphine Sulfate 4 mg 09/30/23 13:58 09/30/23 14:11 Morphine Sulfate 4 Mg/Ml Cartridge IVPUSH 09/30/23 13:59 4 mg ONCE ONE Administration Protocol Ondansetron HCl 4 mg 09/30/23 13:58 09/30/23 14:11 Ondansetron Hcl 4 Mg/2 Ml Vial IVPUSH 09/30/23 13:59 4 mg ONCE ONE Administration Medical Decision Making Medical Decision Making MDM Narrative: 43-year-old male with no significant past medical history presenting to the ED complaining of abdominal pain, nausea, vomiting and diarrhea x2 days. On exam vital signs stable, NAD, appears uncomfortable, abdomen soft diffusely tender, no rebound or guarding. Concern for gastroenteritis vs diverticulitis/colitis vs appendicitis vs cholecystitis/cholelithiasis or pancreatitis. Low suspicion for SBO, dissection/ACS, perforation Plan: Labs, UA, CT AP, IVF, pain control, antiemetics, re-evaluate Please refer to course for remaining clinical decision making, interpretation of labs/imaging results, and discussions with consultants and/or family members. Differential Diagnosis Differential Diagnoses: The differential diagnosis associated with the presentation includes As above Admission/Observation Consideration of admission/observation: Escalation of care including admission/observation considered Lab Data [facility] Lab Attestation statement: I reviewed the patient's lab results. 09/30/23 10:53 09/30/23 10:53 Labs: Lab Results 09/30/23 09/30/23 Range/Units 10:53 17:48 WBC 10.5 (4.8-10.8) X10*3/uL RBC 4.34 L (4.60-5.80) X10*6/uL Hgb 14.2 (14.0-18.0) g/dl Hct 41.1 L (42.0-52.0) % MCV 94.7 (80.0-98.0) fL MCH 32.7 (27.0-33.0) pg MCHC 34.5 (31.0-36.0) g/dl RDW 11.9 (11.0-16.0) % Plt Count 279 (160-400) X10*3/uL MPV 10.3 (9.4-12.4) fL Immature Gran % (Auto) Cancelled Neut % (Auto) Cancelled Lymph % (Auto) Cancelled [place] % (Auto) Cancelled Eos % (Auto) Cancelled Baso % (Auto) Cancelled Lymph # (Auto) Cancelled [place] # (Auto) Cancelled Eos # (Auto) Cancelled Baso # (Auto) Cancelled Abs Immat Gran (auto) Cancelled Absolute Neuts (auto) Cancelled Absolute Nucleated RBC 0.000 (0.0-0.012) X10*3/uL Nucleated RBC % (auto) 0.0 (0.0-0.2) /100WBC Neutrophils % (Manual) 81 H (45-73) % Band Neutrophils % 0 L (3-5) % Lymphocytes % (Manual) 12 L (20-40) % Monocytes % (Manual) 7 (2-11) % Abs Neuts (Manual) 8.5 H (2.0-8.3) X10*3/uL Lymphocytes # (Manual) 1.3 (1.2-4.9) X10*3/uL Monocytes # (Manual) 0.7 (0.1-1.2) X10*3/uL Platelet Estimate NORMAL (NORMAL) Plt Morphology Comment NORMAL RBC Morphology NORMAL Sodium 138 (135-145) mmol/L Potassium 3.8 (3.3-5.1) mmol/L Chloride 105 (96-108) mmol/L Carbon Dioxide 24 (22-29) mmol/L Anion Gap 13 (12-20) BUN 12 (9-16) mg/dL Creatinine 0.79 (0.5-1.4) mg/dL Estim Creat Clear Calc 178.7 Estimated GFR > 60 Random Glucose 128 H (60-115) mg/dL Calcium 10.0 D (8.4-10.2) mg/dL Magnesium 2.0 (1.6-2.6) mg/dL Total Bilirubin 0.8 (0.0-1.0) mg/dL Direct Bilirubin 0.3 (0.0-0.5) mg/dL AST 17 (5-37) U/L ALT 17 (0-40) U/L Alkaline Phosphatase 83 (39-117) U/L Total Protein 8.0 (6.5-8.0) g/dL Albumin 4.5 (3.5-5.0) g/dL Lipase 15 (8-78) U/L Urine Color Yellow Urine Appearance Clear Urine pH 6.0 (5.0-9.0) Ur Specific [place] 1.010 (1.005-1.025) Urine Protein Negative (Neg-Trace) mg/dL Urine Glucose (UA) Negative (Negative) mg/dL Urine Ketones Negative (Negative) mg/dL Urine Blood Trace (Negative) Urine Nitrite Negative (Negative) Ur Leukocyte Esterase Negative (Negative) Urine RBC 3-5 H (0-2) /HPF Urine WBC 0-5 (0-5) /HPF Ur Squamous Epith Cells 0-2 (0-2) /HPF Urine Bacteria None Seen (None Seen) Hyaline Casts 0-2 (0-2) /LPF Independent Interpretation I performed an independent interpretation of an: CT Scan Radiology Impression Discussion of test interpretation with radiology: I have reviewed the radiologist's reading. Independent Historian Clinical information obtained from an independent historian. History obtained from or confirmed by: Spouse External Record Review External record reviewed: Inpatient record, Office record, Outpatient record, Prior outpatient labs, Prior outpatient radiology, Primary care record and Outside ED record Tests considered The following testing was considered but not selected: As above Prescription Management I considered prescription management with: Pain Medication Discharge Plan Discharge Clinical Impression: Abdominal pain Patient Disposition: Still a Patient Instructions: Abdominal Pain (ED) Additional Instructions: You were seen in the emergency department due to abdominal pain and vomiting. Your workup today was reassuring. Your urine does not appear to be infected. You need to follow-up with a primary care physician. Your CT scan showed evidence of a kidney stone, this is nonobstructing and should not cause any symptoms. Your CT scan also showed adrenal nodules, is important to follow-up with the primary care physician for further diagnostic images including a adrenal protocol CT scan for further evaluation. If any new or worsening symptoms occur including but not limited to pain, unable to tolerate oral intake, please return for re-evaluation. Prescriptions: No Action lorazepam [Ativan] 1 mg tablet 1 mg PO BID PRN (Reason: anxiety) Qty: 20 0RF ondansetron 4 mg tablet,disintegrating 4 mg PO Q6-8H PRN (Reason: nausea and vomiting) Qty: 10 0RF ondansetron HCl 4 mg tablet 4 mg PO Q8H PRN (Reason: nausea and vomiting) 4 Days Qty: 14 0RF ondansetron 4 mg tablet,disintegrating 4 mg PO Q8H PRN (Reason: nausea and vomiting) Qty: 20 0RF Print Language: Mauritanian
[2023-09-30 14:00] VITALS: BP 144/88; PULSE 50; RESP 16; O2SAT 100
[2023-09-30] MEDS: 0.9 % Sodium Chloride 1,000 ML 999 ML IV ×2 (14:04→17:05)
[2023-09-30] MEDS: ondansetron HCL 4 MG/2 ML VIAL IVPUSH (14:11)
[2023-09-30] MEDS: Morphine Sulfate 4 MG/ML CARTRIDGE IVPUSH (14:11)
[2023-09-30] MEDS: iohexoL 350 MG/ML 100 ML INFUS..BTL IV (15:31)
[2023-09-30 17:44] VITALS: BP 121/71; PULSE 86; RESP 16; TEMP 37.1; O2SAT 96
[2023-09-30 18:03] LABS: Appearance Urine Clear; Color Urine Yellow; Glucose Urine UA Negative (Negative); Leukocyte Esterase Urine Negative (Negative); Nitrite Urine Negative (Negative); UMIC TRIGGER UACC YES; Urine Blood Trace (Negative); Urine Ketones Negative (Negative); Urine Protein Negative (Neg-Trace)
[2023-09-30 18:06] LABS: Bacteria Urine None Seen (None Seen); Hyaline Casts Urine 0-2 /LPF (0-2); Squamous Epithelial Cell Urine 0-2 /HPF (0-2); WBC Urine 0-5 /HPF (0-5)
--- NOTE | 2023-09-30 19:01 | PC.NURSE ---
patient walked out before d/c paperwork avialble, ambulated off of unit with steady gait, IV removed by this RN
== END 2023-09-30 19:02 | disposition still patient (30) ==
PROVIDERS: Physician Assistant; Emergency Provider Emergency Medicine
DX: R10.9 Unspecified abdominal pain (principal); R11.2 Nausea with vomiting, unspecified; R19.7 Diarrhea, unspecified; Z79.899 Other long term (current) drug therapy
CPT/HCPCS: 36415; 74177; 80053; 81001; 82248; 83690; 83735; 85007; 85025; 85027; 96361; 96374; 96375; 99283; 99284; J2270; J2405; Q9967